=== PATIENT | male | born 1960 | race Caucasian/White ===

== ENCOUNTER 2021-10-18 20:40 | Emergency (ER) | payer BC, OTHER ==
[~2021-10-18] VITALS: Ht 175.3 cm; Wt 103.9 kg
== END 2021-10-18 22:53 | disposition home or self-care (01) ==
LOC: ER 20:51
DX: R07.89 Other chest pain (principal); Z20.822 Contact with and (suspected) exposure to COVID-19
CPT/HCPCS: 71045; 83518; 87070; 93005; 99284; U0002

== ENCOUNTER 2023-11-12 13:58 | Outpatient (RCR) | payer MEDICARE ==
[~2023-11-12 13:58] MED LIST: ARICEPT5 MG PO; ATORVASTATIN CA20 MG PO; LEXAPRO20 MG PO
== END 2023-11-18 ==
LOC: OT 13:58
PROVIDERS: ATTEND Physician Assistant
DX: S46.212D Strain of muscle, fascia and tendon of other parts of biceps, left arm, subsequent encounter (principal); M25.622 Stiffness of left elbow, not elsewhere classified; R53.1 Weakness